=== PATIENT | female | born 1970 | race Hispanic/Latino ===

== ENCOUNTER → 2017-09-30 | Day surgery (SDC) | payer BC ==
[~2017-09-30] MED LIST: BIOTIN10 MG; BUPIVACAINE HCL 0.5% INJ 30 ML VIAL INJ ONE; CEFAZOLIN SOD 2 GM/D5W 50ML 50 ML IV ONE; DEXAMETHASONE SOD PHOS INJ 4 MG/ML VIAL ONE; FENOFIBRATE145 MG PO; FENTANYL CITRATE/PF 100MCG/2 ML INJ ONE; KETOROLAC TROMETHAMINE 30 MG/ML VIAL ONE; LIDOCAINE HCL 2% LOCAL INJ 5 ML SDV VIAL INJ ONE; METFORMIN HCL500 MG PO; MIDAZOLAM HCL 2 MG/2 ML VIAL ONE; MULTI-VITAMIN1 EACH; MUPIROCIN 2% OINT 22 GM TUBE ONE; ONDANSETRON HCL INJ 2 MG/ML VIAL ONE; PROBIOTIC & AC1 EACH; PROPOFOL IV EMULSION 10 MG/ML 20 ML VIAL ONE; ROCURONIUM BROMIDE 10 MG/ML 5ML VIAL ONE; SEVOFLURANE INHAL SOLN 250 ML PEN BTL ONE; VITAMIN C1000 MG
[2017-09-30 09:57] LABS: ANION GAP 15.2 mmol/L (8-16); BLOOD UREA NITROGEN 13 mg/dL (7-26); BUN/CREATININE RATIO 17 (6-25); CARBON DIOXIDE 22 mmol/L (22-29); CHLORIDE 105 mmol/L (98-107); CREATININE, SERUM 0.78 mg/dL (0.57-1.11); EST GLOMERULAR FILTRATION RATE > 60 ML/MIN (60-); GLUCOSE 134 mg/dL (74-118); POTASSIUM 4.2 mmol/L (3.5-5.1); SODIUM 138 mmol/L (136-145)
--- NOTE | 2017-09-30 14:25 | Operative Report ---
DATE OF PROCEDURE: September 30, 2017 PREOPERATIVE DIAGNOSIS 1. Secondary Achilles tendon rupture left foot. 2. Bone spur posterior calcaneous left foot. 3. Gastrocnemius equinus left foot. POSTOPERATIVE DIAGNOSIS 1. Secondary Achilles tendon rupture left foot. 2. Bone spur posterior calcaneous left foot. 3. Gastrocnemius equinus left foot. PROCEDURES 1. Secondary repair of Achilles tendon. 2. Gastrocnemius recession. 3. Excision of calcaneal bone spur. 4. Application of a posterior splint. 5. Use of human allograft to augment the tendon and to prevent adhesions. COMPLICATIONS: None. CONDITION: Stable. MATERIALS: A 2.5 x 10 mm Force Fiber anchor, expiration date June 13, 2018. Lot is [id number]. An AlloWrap 2 x 4, lot number [id number], expiration March 16, 2019. PROCEDURE IN DETAIL: Under mild sedation, the patient was brought to the operating room and placed on the operating table in the supine position. Following IV sedation, anesthesia was obtained with a general anesthetic. At this point, the left foot was scrubbed, prepped and draped in the usual aseptic manner. The patient was positioned in the prone position. A pneumatic tourniquet was inflated to 350 mmHg, and the leg was lowered to the table. Gastrocnemius recession. Attention was then directed to the gastrocnemius junction where a linear incision was made overlying the junction. The incision was deepened via sharp and blunt dissection, taking care to retract or cauterize neurovascular structures down to the level of the aponeurosis. Once this was visualized, with a 15 blade a straight type of lengthening was then performed. It was performed through and through, and the equinus was resolved. The area was then flushed with copious amount of normal sterile saline solution. A secondary repair of Achilles tendon and excision of bone spur. Attention was then directed to the area of the insertion of the Achilles tendon into the calcaneus. The incision was deepened via sharp and blunt dissection, taking care to retract or cauterize neurovascular structures as necessary. It was deepened down to the level of the insertion of the Achilles tendon into the calcaneus. It was then reflected off of the calcaneus. Once it was reflected off, all nonviable tissue of the tendon was then removed. This was removed with sharp dissection with a 15 blade. At this point, the nonviable areas were then intumulated. The repair was augmented with the use of human allograft. Attention was then directed to the posterior aspect of the calcaneus where the bone spur was removed utilizing a curved osteotome. The spur was removed through and through. This was confirmed clinically with the use of intraoperative fluoroscopy. The area was then made smooth with the power rasp. The area was then flushed with a copious amount of normal sterile saline solution. At this point, an anchor was then used to reattach the tendon back into the calcaneus. There was noted to be adequate placement clinically and with the use of intraoperative fluoroscopy. The tendon was then reattached back to the calcaneus. The area was then flushed with a copious amount of normal sterile saline solution. All areas were then closed, closing the deepest layer with 3-0 Vicryl, 4-0 Vicryl and 4-0 nylon. Then 20 mL of 0.5 Marcaine plain was given. The incisions were then dressed with sterile compressive dressing consisting of Adaptic ointment, 4 x 4's, Webril. A posterior splint was applied and was secured utilizing an Ryan bandage. The pneumatic ankle tourniquet was deflated. There was noted to be a hyperemic response to all the digits. Patient tolerated the procedure and anesthesia well without complications, was transported to the recovery room with vital signs stable, neurovascular status intact to both feet. Patient will discharge home when she meets criteria. She was given instructions to be strictly nonweightbearing, to ice and elevate the foot while at rest, to follow up with me in the office and to call if any questions or any problems arise. Job#: [id number]
== END | disposition home or self-care (01) ==
LOC: OR 08:13
PROVIDERS: ATTEND Podiatrist Foot & Ankle Surgery
DX: S86.012A Strain of left Achilles tendon, initial encounter (principal); M77.32 Calcaneal spur, left foot; M21.6X2 Other acquired deformities of left foot; E11.9 Type 2 diabetes mellitus without complications; X58.XXXA Exposure to other specified factors, initial encounter; Z88.5 Allergy status to narcotic agent; Z79.84 Long term (current) use of oral hypoglycemic drugs
CPT/HCPCS: 27654; 27687; 28118; 36415; 80048; 81025; 82948; J1100; J1885; J2001; J2250; J2405; 76001; Q4150